=== PATIENT | female | born 1950 | race Caucasian/White ===

== ENCOUNTER → 2019-05-26 09:52 | Outpatient (CLI) | payer MEDICARE, OTHER, SELFPAY ==
--- NOTE | 2019-05-26 | DI.RAD.S_ITS ---
PROCEDURE: FL BARIUM SWALLOW W SPEECH INDICATIONS: Dysphagia, unspecified TECHNIQUE: Examination was conducted in conjunction with speech pathology per standard protocol. In the lateral projection, filming was performed of the patient swallowing. AP projection filming may also be performed with patient swallowing. COMPARISON: None. FINDINGS: Function: The oral preparatory phase appears normal, with proper containment. The subsequent oral propulsive phase, pharyngeal phase, and esophageal phase of swallowing also appear normal with all proffered substances. No laryngotracheal penetration or aspiration. No pathologic vallecular pooling. Morphology: No cricopharyngeal bar is identified. No cervical esophageal webs. No Zenker's diverticulum. No strictures. IMPRESSION: Normal examination. Please also refer to the dedicated speech therapy high-resolution swallowing evaluation report, which will be independently generated. Dictated by: Que Srivastava M.D. on 05/26/2019 at 13:22 Approved by: Que Srivastava M.D. on 05/26/2019 at 13:23
--- NOTE | 2019-05-27 12:56 | ST.SWALLOW ---
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 Briones in Saturday. The pt described difficulty with foods/liquids getting stuck in her throat when she is eating and/or taking her medications. She noted that she may choke or cough at the time, but she will always need additional fluids to wash the material down to her stomach. Pt added that she often has a sense of globus even when not eating. Pt brought in a report from a recent (05/21/19) ultrasound test which describes a 1.5 cm hypoechoic cystic appearing nodule on her left thyroid gland and a 13mm nodule on her right thyroid gland. Subjective Observations pt was seated in the fluoroscopy chair. description of the procedure and instructions were provided . The pt indicated that she understood and agreed to proceed. Patient Positioning Position View Lateral Imaging Lateral View Textures Administered Trials Presented Thin Liquid via Spoon,Thin Liquid via Cup,Cambria Liquid via Spoon,Cambria Liquid via Cup,Pudding Thick Liquid via Spoon,Regular Textures,Barium Tablet Oral Phase Source: MBSIMP (TM) (C) Bolus Specific Scoring Grid Lip Closure WFL Tongue Control During Bolus Hold WFL Bolus Prep/Mastication WFL Bolus Transport/Lingual Motion WFL A/P Lingual Propulsion Delay No Oral Residue WFL Residue Clearing WFL Nasal Regurgitation No Additional Oral Phase Observations OM structures and function WFL . Pt has a new dental implant on her right mandible - no crown is seated. Pharyngeal Phase Source: MBSIMP (TM) (C) Bolus Specific Scoring Grid Delayed Initiation of Pharyngeal Swallow Yes: premature spillage to the valeculla Number of Seconds Delayed (seconds) ~1s Soft Palate Elevation WFL Tongue Base Strength/Range of Motion Mild Impairment Residue Along the Tongue Base Yes Clearance of Residue Along Tongue Base Mild Impairment Laryngeal Elevation Mild Impairment Anterior Hyoid Movement Mild Impairment Epiglottic Range of Motion Minimal Impairment Vallecular Residue Yes: Trace to minimal; however tablet was stuck x 3 swallows to dislodge Clearance of Vallecular Residue WFL Laryngeal Vestibular Closure WFL Pharyngeal Stripping Wave Mild Impairment Posterior Pharyngeal Wall Residue No: Trace to minimal Clearance of Posterior Pharyngeal Wall WFL Residue Upper Esophageal Sphincter Opening WFL Residue in the Pyriform Sinuses Yes: Trace to minimal Clearance of Residue in the Pyriform WFL Sinuses Esophageal Clearance Upright Position WFL Pharyngoesophageal Backflow Observed No Additional Pharyngeal Phase Observations Pt's swallowing was observed to indicate a to be to minimal to mild pharyngeal phase impairment.. All trials, with the exception of the barium tablet, were observed to be WFL. The barium tablet required a total of 3 swallows to pass from the valeculla. The pt's epiglottis appeared to be curly, which would lead to pieces of foods or pills to get stuck there. Additional sips of liquids appear to be successful in clearing the valeculla. The cookie trial did not result in trapped particles within the valeculla. Following the MBS, aKren stated that she was still feeling as though something was still stuck. It is possible that what she is experiencing is esophageal. If so, a referral to a GI specialist may be considered. A/P View Clinical Impressions Patient Appropriate for Therapy No: Swallow appears to be WFL Recommendations Diet Medication Recommendation Whole in Carrier,One at a Time Treatment Plan Recommended Referrals Primary Care Physician,GI Consult
== END ==
PROVIDERS: Family Provider Nurse Practitioner Family; PCP Family Medicine; Referring Provider Family Medicine; Visit Provider Family Medicine
DX: R13.10 Dysphagia, unspecified (principal)
CPT/HCPCS: 74230; 92611

== ENCOUNTER → 2019-07-02 09:38 | Outpatient (CLI) | payer MEDICARE, OTHER, SELFPAY ==
--- NOTE | 2019-07-02 | DI.NM.S_ITS ---
PROCEDURE: NM UPTAKE AND SCAN RADIOPHARMACEUTICAL: 360 ?Ci I-123 sodium iodide by mouth. INDICATIONS: Localized swelling, mass and lump, neck TECHNIQUE: I-123 sodium iodide was administered orally. Anterior neck images were obtained, and iodine uptake by the thyroid gland calculated using manager technical training's software. COMPARISON: None. FINDINGS: Morphology: The thyroid gland has normal morphology and uniform activity. No 'cold' or 'hot' thyroid nodules are identified. Uptake: 6 hour thyroid uptake is 10.1%; normal ranges are from 6-18%. 24 hour thyroid uptake is 28.4%; normal ranges are from 10-30%. IMPRESSION: Normal 6 hour and 24 hour thyroid uptake. No hot or cold thyroid nodules identified. Dictated by: Brianna Mike MD, PhD on 07/03/2019 at 11:38 Approved by: Brianna Mike MD, PhD on 07/03/2019 at 11:40
== END ==
PROVIDERS: Family Provider Nurse Practitioner Family; PCP Family Medicine; Referring Provider Family Medicine; Visit Provider Family Medicine
DX: R22.1 Localized swelling, mass and lump, neck (principal)
CPT/HCPCS: 78014; A9516